=== PATIENT | female | born 1985 | race Caucasian/White ===

== ENCOUNTER 2016-11-02 22:52 | Emergency (ER) ==
[2016-11-02 22:59] VITALS: BP 114/74; TEMP 98.9; BMI 31.1
[2016-11-02 23:18] LABS: BILIRUBIN,URINE Negative (NEGATIVE); KETONES,URINE Trace (NEGATIVE); LEUKOCYTE ESTERASE ,URINE Negative (NEGATIVE); NITRITE,URINE Positive (NEGATIVE); PROTEIN,URINE 1+ (NEGATIVE); URINE, BLOOD 2+ (NEGATIVE)
[2016-11-02 23:21] LABS: ADD URINE MICROSCOPIC YES; BACTERIA,URINE 1+ (NOT PRESENT)
[2016-11-02] MEDS ORDERED: BACTRIM DS 800/160 MG PO STA (23:24)
--- NOTE | 2016-11-02 23:24 | ED.PDOC ---
General ED Provider: Dr. DELFINO MURRELL Chief Complaint: Urinary Problem Stated Complaint: Burning frequency of urination for couple days, taki Azo not getting better. Time Seen by Physician: 23:22 Mode of Arrival: Walk-In Information Source: Patient Nursing and Triage Documentation Reviewed and Agree: Yes Complaint Exam - UTI Female Complaint/Exam Patient Complains of: Reports: Painful urination Symptoms Are: Still present Timing: Constant Initial Severity: Moderate Current Severity: Moderate Location of Pain: Reports: Suprapubic Associated Signs and Symptoms: Denies: Fever, Chills, Flank pain, Dyspareunia, Vaginal discharge Patient Rh Status: Unknown : 1 Para: 1 Hx Total # of Abortions (Spontaneous & Elective): 0 Related Surgical History: Reports: None CVA Tenderness: No Suprapubic Tenderness: Yes Differential Diagnoses: Cystitis Review of Systems - Review Of Systems Constitutional: Reports: No symptoms Eyes: Reports: No symptoms Ears, Nose, Mouth, Throat: Reports: No symptoms Respiratory: Reports: No symptoms Cardiac: Reports: No symptoms GI: Reports: No symptoms : Reports: Burning, Dysuria, Frequency Musculoskeletal: Reports: No symptoms Skin: Reports: No symptoms Neurological: Reports: No symptoms Endocrine: Reports: No symptoms Hematologic/Lymphatic: Reports: No symptoms All Other Systems: Reviewed and Negative Past Medical History - Past Medical History Previously Healthy: Yes Endocrine: Reports: None Cardiovascular: Reports: None Respiratory: Reports: None Hematological: Reports: None Gastrointestinal: Reports: None Genitourinary: Reports: None Neuro/Psych: Reports: None Musculoskeletal: Reports: None Cancer: Reports: None Last Menstrual Period: GETS DEPO SHOT, VERY IRREGULAR - Surgical History General Surgical History: Reports: Tubal ligation, Cholecystectomy - Family History Family History: Reports: None - Social History Smoking Status: Current every day smoker, Heavy tobacco smoker Smoking Cessation Counseling Time: > 10 min Hx Substance Use: No Alcohol Screening: Occasionally - Immunizations Tetanus Shot up to Date: Yes Physical Exam - Physical Exam Appearance: Well-appearing, No pain distress, Well-nourished Eyes: NANI, EOMI, Conjunctiva clear ENT: Ears normal, Nose normal, Oropharynx normal Respiratory: Airway patent, Breath sounds clear, Breath sounds equal, Respirations nonlabored Cardiovascular: RRR, Pulses normal, No rub, No murmur GI/: Soft, Nontender, No masses, Bowel sounds normal, No Organomegaly Musculoskeletal: Normal strength, ROM intact, No edema, No calf tenderness Skin: Warm, Dry, Normal color Neurological: Sensation intact, Motor intact, Reflexes intact, Cranial nerves intact, Alert, Oriented Psychiatric: Affect appropriate, Mood appropriate Critical Care Note - Critical Care Note Total Time (mins): 0 Course - Course Orders, Labs, Meds: Lab Review 11/02/16 23:10 Urine Color [place] Urine Clarity Clear Urine pH 7.0 Ur Specific [place] 1.020 Urine Protein 1+ Urine Glucose (UA) Trace Urine Ketones Trace Urine Blood 2+ Urine Nitrite Positive Urine Bilirubin Negative Urine Urobilinogen 2.0 Ur Leukocyte Esterase Negative Urine Microscopic RBC 5-10 Urine Microscopic WBC 2-5 Ur Squamous Epith Cells 5-10 Urine Bacteria 1+ Orders Category Date Time Status UA [URINALYSIS C & S IF INDICATED] Stat LAB 11/02/16 23:10 Completed URINE CULTURE Stat LAB 11/02/16 23:21 Received Vital Signs: Temp Pulse Resp BP Pulse Ox 11/02/16 22:52 98.9 F 98 H 18 114/74 98 Departure - Departure Time of Disposition: 23:25 Disposition: HOME SELF-CARE Discharge Problem: UTI (urinary tract infection) Qualifiers: Urinary tract infection type: acute cystitis Hematuria presence: with hematuria Qualifier Code: (N30.01) Acute cystitis with hematuria Instructions: Urinary Tract Infection in Women (ED) Condition: Stable Pt referred to PMD for follow-up: Yes Additional Instructions: INCREASE HYDRATION CONTINUE AZO MEDICATION SIDE EFFECTS DISCUSSED Prescriptions: Sulfamethoxazole/Trimethoprim [Bactrim Ds 800/160 mg] 1 tab PO Q12HR #20 tablet Allergies/Adverse Reactions: Allergies No Known Allergies Allergy (Verified 11/02/16 22:59) Home Medications: Ambulatory Orders Medroxyprogesterone Acetate [Depo-Provera] 150 mg IM DIRECTED 09/24/16 Sulfamethoxazole/Trimethoprim [Bactrim Ds 800/160 mg] 1 tab PO Q12HR #20 tablet 11/02/16 Disposition Discussed With: Patient
== END 2016-11-02 23:40 | disposition home or self-care (01) ==
LOC: ED 22:52
DX: N30.01 Acute cystitis with hematuria (principal); F17.210 Nicotine dependence, cigarettes, uncomplicated
CPT/HCPCS: 81001; 87086; 99283

== ENCOUNTER 2017-05-13 23:36 | Emergency (ER) ==
[2017-05-13 23:43] VITALS: BP 111/71; TEMP 98.1; BMI 30.6
[2017-05-13] MEDS ORDERED: DECADRON 4 MG/ML SDV IM STA (23:51)
--- NOTE | 2017-05-13 23:53 | ED.PDOC ---
General ED Provider: Dr. DELFINO MURRELL Chief Complaint: Non-specific Complaint Stated Complaint: dizziness weakness, had some congestion and ears full. Time Seen by Physician: 23:51 Mode of Arrival: Walk-In Information Source: Patient Nursing and Triage Documentation Reviewed and Agree: Yes Neurological Complaint Exam - Weakness Complaint/Exam Onset: Gradual Symptoms Are: Still present Timing: Intermittent Episodes Lasting: Hours Initial Severity: Mild Current Severity: Mild Character: Reports: Lightheaded Aggravating: Reports: Position change Alleviating: Reports: None Associated Signs and Symptoms: Denies: Nausea, Vomiting, Diaphoresis, Tinnitus, Chest pain, Short of air, Palpitations, Unsteady gait, GI blood loss, Visual changes, Decreased oral intake, Change in medication, Change in diet, OTC meds, Loss of balance Cardiac Risk Factors: Reports: None CVA Risk Factors: Reports: None Related Surgical History: Reports: None JVD Present: No Carotid Bruit Present: No Rectal Heme Positive: No Nystagmus Present: No Gag Reflex Present: No Meningeal Signs Positive: No Focal Weakness: Present: None Focal Sensory Loss: Present: None Gait: Normal [id number]: Normal Findings Romberg Test Positive: No Babinski Sign: Negative Right, Negative Left Heel to Toe Normal: No Differential Diagnoses: Labyrinthitis, Meniere's, Metabolic abnormalities, Other (viral syndrome) Review of Systems - Review Of Systems Constitutional: Reports: Malaise, Weakness Eyes: Reports: No symptoms Ears, Nose, Mouth, Throat: Reports: No symptoms Respiratory: Reports: No symptoms Cardiac: Reports: No symptoms GI: Reports: No symptoms : Reports: No symptoms Musculoskeletal: Reports: No symptoms Skin: Reports: No symptoms Neurological: Reports: No symptoms Endocrine: Reports: No symptoms Hematologic/Lymphatic: Reports: No symptoms All Other Systems: Reviewed and Negative Past Medical History - Past Medical History Previously Healthy: Yes Endocrine: Reports: None Cardiovascular: Reports: None Respiratory: Reports: None Hematological: Reports: None Gastrointestinal: Reports: None Genitourinary: Reports: None Neuro/Psych: Reports: None Musculoskeletal: Reports: None Cancer: Reports: None Last Menstrual Period: YESTERDAY, IRREGULAR - Surgical History General Surgical History: Reports: Tubal ligation, Cholecystectomy - Family History Family History: Reports: None - Social History Smoking Status: Current every day smoker, Heavy tobacco smoker Hx Substance Use: No Alcohol Screening: Occasionally - Immunizations Tetanus Shot up to Date: Yes Physical Exam - Physical Exam Appearance: Well-appearing, No pain distress, Well-nourished Eyes: NANI, EOMI, Conjunctiva clear ENT: Ears normal, Nose normal, Oropharynx normal Respiratory: Airway patent, Breath sounds clear, Breath sounds equal, Respirations nonlabored Cardiovascular: RRR, Pulses normal, No rub, No murmur GI/: Soft, Nontender, No masses, Bowel sounds normal, No Organomegaly Musculoskeletal: Normal strength, ROM intact, No edema, No calf tenderness Skin: Warm, Dry, Normal color Neurological: Sensation intact, Motor intact, Reflexes intact, Cranial nerves intact, Alert, Oriented Psychiatric: Affect appropriate, Mood appropriate Critical Care Note - Critical Care Note Total Time (mins): 0 Course - Course Orders, Labs, Meds: Orders Category Date Time Status CBC W/ AUTO DIFF Stat LAB 05/13/17 23:50 Ordered COMPREHENSIVE METABOLIC PANEL Stat LAB 05/13/17 23:51 Ordered URINALYSIS C & S IF INDICATED Stat LAB 05/13/17 23:51 Uncollected URINE Stat LAB 05/13/17 23:51 Uncollected Dexamethasone 4 mg/ml Inj [Decadron 4 mg/ml Sdv] MEDS 05/13/17 23:51 Stat 4 mg IM ONCE STA Vital Signs: Temp Pulse Resp BP Pulse Ox 05/13/17 23:37 98.1 F 70 20 111/71 99 Departure - Departure Time of Disposition: 23:54 Disposition: HOME SELF-CARE Discharge Problem: General symptom Instructions: Viral Syndrome (ED) Condition: Good Pt referred to PMD for follow-up: No Additional Instructions: Increase hydration Tylenol prn Needs f/u with PMD if not better. Allergies/Adverse Reactions: Allergies No Known Allergies Allergy (Verified 05/13/17 23:43) Home Medications: Ambulatory Orders 1 [No Reported Medications] 05/13/17 Disposition Discussed With: Patient, Family
[2017-05-14 00:03] LABS: BASOPHILS % (AUTO) 0.4 % (0.0-3.0); EOSINOPHILS # (AUTO) 0.2 K/ul (0.0-0.7); EOSINOPHILS % (AUTO) 2.4 % (0.0-7.0); HEMATOCRIT 36.1 % (37.0-47.0); HEMOGLOBIN 11.9 g/dl (12.0-16.0); IMMATURE GRANULOCYTE % (AUTO) 0.2 % (0.0-5.0); LYMPHOCYTES % (AUTO) 32.4 (10.0-50.0); MEAN CORPUSCULAR HEMOGLOBIN 28.7 pg (27.0-31.0); MEAN CORPUSCULAR VOLUME 87.2 fl (81.0-99.0); MONOCYTES # (AUTO) 0.5 K/uL (0.4-2.0); MONOCYTES % (AUTO) 5.7 (0-10); NEUTROPHILS # (AUTO) 5.4 K/ul (2.0-6.9); NEUTROPHILS % (AUTO) 58.9; PLATELET COUNT 262 10^3/uL (140-440); RED BLOOD COUNT 4.14 10^6/ul (4.20-5.40); WHITE BLOOD COUNT 9.17 K/ul (4.6-10.2)
[2017-05-14 00:15] LABS: ADD URINE MICROSCOPIC YES; BILIRUBIN,URINE Negative (NEGATIVE); KETONES,URINE Negative (NEGATIVE); LEUKOCYTE ESTERASE ,URINE Negative (NEGATIVE); NITRITE,URINE Negative (NEGATIVE); PROTEIN,URINE Negative (NEGATIVE); URINE, BLOOD 2+ (NEGATIVE)
[2017-05-14 00:16] LABS: URINE PREGNANCY INTERNAL QC INTERNAL QC VALID
[2017-05-14 00:29] LABS: ALBUMIN 3.6 g/dL (3.4-5.0); ALBUMIN/GLOBULIN RATIO 1.09; ANION GAP 11.3; BILIRUBIN,TOTAL 0.37 mg/dL (0.00-1.20); BUN/CREATININE RATIO 18.82; CALCIUM 9.1 mg/dL (8.2-10.2); CREATININE 0.85 mg/dL (0.60-1.30); POTASSIUM 4.3 mmol/L (3.5-5.10); TOTAL PROTEIN 6.9 g/dL (6.4-8.2)
== END 2017-05-14 00:40 | disposition home or self-care (01) ==
LOC: ED 23:36
DX: R68.89 Other general symptoms and signs (principal); R42 Dizziness and giddiness; R53.1 Weakness; F17.210 Nicotine dependence, cigarettes, uncomplicated
CPT/HCPCS: 36415; 80053; 81001; 81025; 85025; 96372; 99283

== ENCOUNTER 2017-07-01 20:35 | Emergency (ER) ==
[2017-07-01 20:39] VITALS: TEMP 97.7; BMI 31.6
[2017-07-01] MEDS ORDERED: SODIUM CHLORIDE 1,000 ML IV STA ×2 (20:47→21:58)
[2017-07-01] MEDS ORDERED: ZOFRAN 4 MG/2 ML IVP STA (20:47)
[2017-07-01] MEDS ORDERED: PROTONIX IV IVP STA (20:47)
--- NOTE | 2017-07-01 21:05 | ED.PDOC ---
General ED Provider: Dr. JEREMI ELIZABETH Chief Complaint: Nausea/Vomiting Stated Complaint: Patient is a 31 year old female who comes to the ER with complans of 2 days of nausea, vomting, diarrhea and dysurea. Time Seen by Physician: 21:02 Mode of Arrival: Walk-In Information Source: Patient Exam Limitations: No limitations Primary [facility] Provider[facility] Nursing and Triage Documentation Reviewed and Agree: Yes GI Complaint Exam - Vomiting/Diarrhea Complaint/Exam Onset/Duration: 2 days Symptoms Are: Still present Episodes of Vomiting over last 24 Hours: 5 Episodes of Diarrhea Over Last 24 Hours: 7 Initial Severity: Moderate Current Severity: Severe Character of Vomiting: Reports: Non-bilious Character of Diarrhea: Reports: Watery Aggravating: Reports: Liquids Alleviating: Reports: None Associated Signs and Symptoms: Reports: Abdominal pain, Cramping. Denies: Dizziness, Light-headedness, Melena, Hematemesis, Fever Recent Positive Test: No Use of Oral Contraceptives: No Use of Depoprovera: No Compliant With Contraceptive Use: No Non-GI Risk Factors: Reports: None Surgical Obstruction Risk Factors: Reports: None Related Surgical History: Reports: Cholecystectomy Abdominal Findings: Present: None Kussmaul Respirations Present: No Review of Systems - Review Of Systems Constitutional: Reports: No symptoms Eyes: Reports: No symptoms Ears, Nose, Mouth, Throat: Reports: No symptoms Respiratory: Reports: No symptoms Cardiac: Reports: No symptoms GI: Reports: Abdominal pain, Diarrhea, Nausea, Vomiting : Reports: No symptoms Musculoskeletal: Reports: No symptoms Skin: Reports: No symptoms Neurological: Reports: No symptoms Endocrine: Reports: No symptoms Hematologic/Lymphatic: Reports: No symptoms All Other Systems: Reviewed and Negative Past Medical History - Past Medical History Previously Healthy: Yes Endocrine: Reports: None Cardiovascular: Reports: None Respiratory: Reports: None Hematological: Reports: None Gastrointestinal: Reports: None Genitourinary: Reports: None Neuro/Psych: Reports: None Musculoskeletal: Reports: None Cancer: Reports: None Last Menstrual Period: current - Surgical History General Surgical History: Reports: Tubal ligation, Cholecystectomy - Family History Family History: Reports: None - Social History Smoking Status: Current every day smoker, Heavy tobacco smoker Hx Substance Use: No Alcohol Screening: None - Immunizations Tetanus Shot up to Date: Yes Physical Exam - Physical Exam Appearance: Ill-appearing, Well-nourished Ill-appearing: Moderate Pain Distress: Moderate Eyes: NANI, EOMI, Conjunctiva clear Neck: Supple Respiratory: Airway patent, Breath sounds clear, Breath sounds equal, Respirations nonlabored Cardiovascular: RRR, Pulses normal, No rub, No murmur GI/: Soft, No masses, Bowel sounds normal, No Organomegaly, Tender Musculoskeletal: Normal strength, ROM intact, No edema, No calf tenderness Skin: Warm, Dry, Normal color Neurological: Sensation intact, Motor intact, Alert, Oriented Psychiatric: Anxious Interpretation - Radiology Interpretation Radiology Interpretation By: Radiologist Radiology Results: Negative Exam Interpreted: CT Scan Critical Care Note - Critical Care Note Total Time (mins): 0 Course - Course Hematology/Chemistry: 07/01/17 20:57 07/01/17 20:57 Orders, Labs, Meds: Lab Review 07/01/17 07/01/17 07/01/17 20:53 20:57 20:57 WBC 11.32 H RBC 4.62 Hgb 12.6 Hct 38.9 MCV 84.2 MCH 27.3 MCHC 32.4 RDW Coeff of Mariam 13.1 Plt Count 238 Immature Gran % (Auto) 0.6 Neut % (Auto) 72.6 Lymph % (Auto) 18.4 [place] % (Auto) 6.8 Eos % (Auto) 1.3 Baso % (Auto) 0.3 Immature Gran # (Auto) 0.1 Neut # 8.2 H Lymph # 2.1 [place] # 0.8 Eos # 0.2 Baso # 0.0 Sodium 143 Potassium 3.6 Chloride 110 H Carbon Dioxide 23 Anion Gap 13.6 BUN 8 Creatinine 0.72 Estimated GFR (MDRD) 95.00 BUN/Creatinine Ratio 11.11 Glucose 89 Calcium 9.0 Total Bilirubin 0.63 AST 29 ALT 39 Alkaline Phosphatase 170 H Total Protein 6.9 Albumin 3.6 Globulin 3.3 Albumin/Globulin Ratio 1.09 Amylase 46 Lipase 11 Serum , Qual Urine Color Yellow Urine Clarity Clear Urine pH 5.5 Ur Specific [place] >=1.030 Urine Protein Trace Urine Glucose (UA) Negative Urine Ketones Trace Urine Blood 2+ Urine Nitrite Negative Urine Bilirubin 1+ Urine Urobilinogen 0.2 Ur Leukocyte Esterase Negative Urine Microscopic RBC 10-20 Urine Microscopic WBC 0-2 Ur Squamous Epith Cells 10-20 07/01/17 20:57 WBC RBC Hgb Hct MCV MCH MCHC RDW Coeff of Mari[place] Plt Count Immature Gran % (Auto) Neut % (Auto) Lymph % (Auto) [place] % (Auto) Eos % (Auto) Baso % (Auto) Immature Gran # (Auto) Neut # Lymph # [place] # Eos # Baso # Sodium Potassium Chloride Carbon Dioxide Anion Gap BUN Creatinine Estimated GFR (MDRD) BUN/Creatinine Ratio Glucose Calcium Total Bilirubin AST ALT Alkaline Phosphatase Total Protein Albumin Globulin Albumin/Globulin Ratio Amylase Lipase Serum , Qual Negative Urine Color Urine Clarity Urine pH Ur Specific [place] Urine Protein Urine Glucose (UA) Urine Ketones Urine Blood Urine Nitrite Urine Bilirubin Urine Urobilinogen Ur Leukocyte Esterase Urine Microscopic RBC Urine Microscopic WBC Ur Squamous Epith Cells Orders Category Date Time Status ED IV/MEDIPORT/POWERPORT .ONCE EMERGENCY 07/01/17 20:47 Active AMYLASE Stat LAB 07/01/17 20:57 Completed CBC W/ AUTO DIFF Stat LAB 07/01/17 20:57 Completed COMPREHENSIVE METABOLIC PANEL Stat LAB 07/01/17 20:57 Completed HCG QUALITATIVE [SERUM ] Stat LAB 07/01/17 20:57 Completed LIPASE Stat LAB 07/01/17 20:57 Completed URINALYSIS C & S IF INDICATED Stat LAB 07/01/17 20:53 Completed 0.9 % Sodium Chloride [Saline Flush] MEDS 07/01/17 20:47 Discontinued 1 syr IVF PRN PRN Metoclopramide HCl [Reglan] MEDS 07/01/17 21:58 Discontinued 10 mg IVP ONCE STA Ondansetron HCl/Pf [Zofran 4 mg/2 ml] MEDS 07/01/17 20:47 Discontinued 4 mg IVP ONCE STA Pantoprazole Sodium [Protonix IV] MEDS 07/01/17 20:47 Discontinued 40 mg IVP ONCE STA Sodium Chloride 0.9% [Sodium Chloride] 1,000 ml MEDS 07/01/17 20:47 Discontinued IV BOLUS Sodium Chloride 0.9% [Sodium Chloride] 1,000 ml MEDS 07/01/17 21:[address] ABD/PEL WO RENAL STONE PROT Stat RADS 07/01/17 20:47 Completed Medications Discontinued Medications Generic Name Dose Route Start Last Admin Trade Name Freq PRN Reason Stop Dose Admin Sodium Chloride 1,000 mls @ 1,000 mls/hr 07/01/17 20:47 07/01/17 21:15 Sodium Chloride IV 07/01/17 21:46 1,000 mls/hr BOLUS STA Administration Sodium Chloride 1,000 mls @ 1,000 mls/hr 07/01/17 21:58 07/01/17 22:06 Sodium Chloride IV 07/01/17 22:57 1,000 mls/hr BOLUS STA Administration Metoclopramide HCl 10 mg 07/01/17 21:58 07/01/17 22:06 Reglan IVP 07/01/17 21:59 10 mg ONCE STA Administration Ondansetron HCl 4 mg 07/01/17 20:47 07/01/17 21:15 Zofran 4 Mg/2 Ml IVP 07/01/17 20:48 4 mg ONCE STA Administration Pantoprazole Sodium 40 mg 07/01/17 20:47 07/01/17 21:16 Protonix Iv IVP 07/01/17 20:48 40 mg ONCE STA Administration Sodium Chloride 1 syr 07/01/17 20:47 07/01/17 21:16 Saline Flush IVF 1 syr PRN PRN Administration To flush IV Vital Signs: Temp Pulse Resp BP Pulse Ox 07/01/17 23:11 60 18 104/60 98 07/01/17 20:36 97.7 F 82 18 133/75 98 Departure - Departure Time of Disposition: 23:40 Disposition: HOME SELF-CARE Discharge Problem: Gastroenteritis Instructions: Gastroenteritis (ED) Condition: Fair Pt referred to PMD for follow-up: Yes Additional Instructions: Push fluids Follow up with PCP in 3 days Prescriptions: Dicyclomine HCl [Bentyl] 10 mg PO TID PRN #14 capsule PRN Reason: Abdominal Pain Diphenoxylate HCl/Atropine [Lomotil 2.5-0.025 mg Tablet] 1 each PO TID PRN #15 tablet PRN Reason: Diarrhea Ondansetron HCl [Zofran Tab] 4 mg PO Q8H PRN #14 tablet PRN Reason: Nausea / Vomiting Phenazopyridine HCl [Pyridium] 100 mg PO TID PRN #10 tablet PRN Reason: Urinary Burning. Allergies/Adverse Reactions: Allergies No Known Allergies Allergy (Verified 07/01/17 20:39) Home Medications: Ambulatory Orders Dicyclomine HCl [Bentyl] 10 mg PO TID PRN #14 capsule 07/01/17 Diphenoxylate HCl/Atropine [Lomotil 2.5-0.025 mg Tablet] 1 each PO TID PRN #15 tablet 07/01/17 Ondansetron HCl [Zofran Tab] 4 mg PO Q8H PRN #14 tablet 07/01/17 Phenazopyridine HCl [Pyridium] 100 mg PO TID PRN #10 tablet 07/01/17 Disposition Discussed With: Patient, Family
[2017-07-01 21:06] LABS: BASOPHILS % (AUTO) 0.3 % (0.0-3.0); EOSINOPHILS # (AUTO) 0.2 K/ul (0.0-0.7); EOSINOPHILS % (AUTO) 1.3 % (0.0-7.0); HEMATOCRIT 38.9 % (37.0-47.0); HEMOGLOBIN 12.6 g/dl (12.0-16.0); IMMATURE GRANULOCYTE % (AUTO) 0.6 % (0.0-5.0); LYMPHOCYTES # (AUTO) 2.1 K/uL (0.60-3.4); LYMPHOCYTES % (AUTO) 18.4 (10.0-50.0); MEAN CORPUSCULAR HEMOGLOBIN 27.3 pg (27.0-31.0); MEAN CORPUSCULAR HGB CONC 32.4 (31.8-35.4); MEAN CORPUSCULAR VOLUME 84.2 fl (81.0-99.0); MONOCYTES # (AUTO) 0.8 K/uL (0.4-2.0); MONOCYTES % (AUTO) 6.8 (0-10); NEUTROPHILS # (AUTO) 8.2 K/ul (2.0-6.9); NEUTROPHILS % (AUTO) 72.6; PLATELET COUNT 238 10^3/uL (140-440); RED BLOOD COUNT 4.62 10^6/ul (4.20-5.40); WHITE BLOOD COUNT 11.32 K/ul (4.6-10.2)
[2017-07-01 21:11] LABS: BILIRUBIN,URINE 1+ (NEGATIVE); KETONES,URINE Trace (NEGATIVE); LEUKOCYTE ESTERASE ,URINE Negative (NEGATIVE); NITRITE,URINE Negative (NEGATIVE); PH,URINE 5.5 (5-9); PROTEIN,URINE Trace (NEGATIVE); URINE, BLOOD 2+ (NEGATIVE)
[2017-07-01 21:15] LABS: ADD URINE MICROSCOPIC YES
[2017-07-01 21:21] LABS: SERUM PREGNANCY INTERNAL QC INTERNAL QC VALID
[2017-07-01 21:26] LABS: ALBUMIN 3.6 g/dL (3.4-5.0); ALBUMIN/GLOBULIN RATIO 1.09; ANION GAP 13.6; BILIRUBIN,TOTAL 0.63 mg/dL (0.00-1.20); BUN/CREATININE RATIO 11.11; CREATININE 0.72 mg/dL (0.60-1.30); POTASSIUM 3.6 mmol/L (3.5-5.10); TOTAL PROTEIN 6.9 g/dL (6.4-8.2)
--- NOTE | 2017-07-01 21:55 | CT ---
Exam: CT of the abdomen and pelvis without contrast History: Abdominal pain with nausea vomiting Technique: [address] of the abdomen and pelvis without intravascular contrast FINDINGS: The lung bases are clear. No significant liver abnormality. The adrenals, pancreas and spl een are unremarkable. The stomach and hiatus are unremarkable.Prior cholecystectomy. Kidneys and prox imal collecting system are unremarkable. The appendix is normal. Bowel loops demonstrate normal calib er. No inflamatory change seen in the mesentery or retroperitoneum. Vascular structures appear normal by noncontrast CT. Central mesenteric lymph nodes are abundant but not enlarged. Essure occlusive devices in place. Tampon in the vagina. Pelvic genitourinary structures appear norm al. Pelvic bowel loops are unremarkable. No inflammatory change in the pelvic fat. No acute abnormali ty of the abdominal or pelvic skeleton. Impression: 1. No inflammatory process, bowel or urinary obstruction is seen. 2. Nonspecific central mesenteric lymph node abundance without pathologic enlargement.
[2017-07-01] MEDS ORDERED: REGLAN IVP STA (21:58)
[2017-07-01 23:13] VITALS: BP 104/60
== END 2017-07-01 23:30 | disposition home or self-care (01) ==
LOC: ED 20:35
DX: K52.9 Noninfective gastroenteritis and colitis, unspecified (principal); F17.210 Nicotine dependence, cigarettes, uncomplicated
CPT/HCPCS: 36415; 74176; 80053; 81001; 82150; 83690; 84703; 85025; 96361; 96374; 96375; 99283

== ENCOUNTER 2018-01-02 15:24 | Emergency (ER) ==
[2018-01-02 15:35] VITALS: BP 120/79; TEMP 98.8; BMI 29.3
--- NOTE | 2018-01-02 15:49 | ED.PDOC ---
General ED Provider: Dr. EDD ATKINS-ER Chief Complaint: Urinary Problem Stated Complaint: it hurts to pee Time Seen by Physician: 15:30 Mode of Arrival: Walk-In Information Source: Patient Exam Limitations: No limitations Primary Care Provider: DELFIN[facility] Nursing and Triage Documentation Reviewed and Agree: Yes Reviewed sepsis parameters & appropriate labs ordered?: Yes System Inflammatory Response Syndrome: Not Applicable Sepsis Protocol: For patient's 13 years and over: Temp is 96.8 and below OR 101 and greater Pulse >90 BPM Resp >20/minute Acutely Altered Mental Status Are patient's symptoms suggestive of a new infection, such as: -Pneumonia -Skin, Soft Tissue -Endocarditis -UTI -Bone, Joint Infection -Implantable Device -Acute Abdominal Infection -Wound Infection -Meningitis -Blood Stream Catheter Infection -Unknown Complaint Exam - UTI Female Complaint/Exam Patient Complains of: Reports: Painful urination Onset/Duration: 2 days Symptoms Are: Still present Initial Severity: Mild Current Severity: Mild Location of Pain: Reports: Suprapubic Associated Signs and Symptoms: Denies: Fever, Chills, Flank pain, Dyspareunia, Vaginal discharge Patient Rh Status: Unknown CVA Tenderness: No Suprapubic Tenderness: No Differential Diagnoses: Cystitis Review of Systems - Review Of Systems Constitutional: Reports: No symptoms Eyes: Reports: No symptoms Ears, Nose, Mouth, Throat: Reports: No symptoms Respiratory: Reports: No symptoms Cardiac: Reports: No symptoms GI: Reports: No symptoms : Reports: Dysuria, Frequency, Pain, Urgency Musculoskeletal: Reports: No symptoms Skin: Reports: No symptoms Neurological: Reports: No symptoms Endocrine: Reports: No symptoms Hematologic/Lymphatic: Reports: No symptoms All Other Systems: Reviewed and Negative Past Medical History - Past Medical History Previously Healthy: Yes Endocrine: Reports: None Cardiovascular: Reports: None Respiratory: Reports: None Hematological: Reports: None Gastrointestinal: Reports: None Genitourinary: Reports: None Neuro/Psych: Reports: None Musculoskeletal: Reports: None Cancer: Reports: None Last Menstrual Period: 1 month ago - irregular - Surgical History General Surgical History: Reports: Tubal ligation, Cholecystectomy - Family History Family History: Reports: None - Social History Smoking Status: Current every day smoker, Heavy tobacco smoker Hx Substance Use: No Alcohol Screening: None Lives: With family - Immunizations Tetanus Shot up to Date: Yes Physical Exam - Physical Exam Appearance: Well-appearing, No pain distress, Well-nourished Eyes: NANI, EOMI, Conjunctiva clear ENT: Ears normal, Nose normal, Oropharynx normal Neck: Supple Respiratory: Airway patent, Breath sounds clear, Breath sounds equal, Respirations nonlabored Cardiovascular: RRR, Pulses normal, No rub, No murmur GI/: Soft, Nontender, No masses, Bowel sounds normal, No Organomegaly Musculoskeletal: Normal strength, ROM intact, No edema, No calf tenderness Skin: Warm, Dry, Normal color Neurological: Sensation intact, Motor intact, Reflexes intact, Cranial nerves intact, Alert, Oriented Psychiatric: Affect appropriate, Mood appropriate Critical Care Note - Critical Care Note Total Time (mins): 0 Course - Course Orders, Labs, Meds: Orders Category Date Time Status URINALYSIS C & S IF INDICATED Stat LAB 01/02/18 03:40 Received Vital Signs: Temp Pulse Resp BP Pulse Ox 01/02/18 15:25 98.8 F 88 20 120/79 98 Departure - Departure Time of Disposition: 15:48 Disposition: HOME SELF-CARE Discharge Problem: Cystitis Instructions: Urinary Tract Infection in Women (ED) Condition: Good Pt referred to PMD for follow-up: Yes IPMP verified?: No Additional Instructions: cipro 500mg bid x 7days--pyridium 200mg tid with food #6--push fluids--recheck ua and culture with pcp Allergies/Adverse Reactions: Allergies No Known Allergies Allergy (Verified 01/02/18 15:35) Home Medications: Ambulatory Orders 1 [No Reported Medications] 01/02/18 Disposition Discussed With: Patient
== END 2018-01-02 15:57 | disposition home or self-care (01) ==
LOC: ED 15:24
DX: N30.90 Cystitis, unspecified without hematuria (principal); F17.210 Nicotine dependence, cigarettes, uncomplicated
CPT/HCPCS: 81001; 87086; 99283

== ENCOUNTER 2018-10-22 18:38 | Emergency (ER) ==
[2018-10-22 18:47] VITALS: BP 128/85; TEMP 98.5; BMI 26.9
[2018-10-22] MEDS ORDERED: SODIUM CHLORIDE 1,000 ML IV STA (19:28)
[2018-10-22] MEDS ORDERED: TORADOL IVP STA (19:28)
--- NOTE | 2018-10-22 19:29 | ED.PDOC ---
General ED Provider: Dr. JEREMI ELIZABETH Chief Complaint: Urinary Problem Stated Complaint: Patient complains of right lower back pain with dysurea. Took azo for 2-3 day but not better. Time Seen by Physician: 19:28 Mode of Arrival: Walk-In Information Source: Patient Exam Limitations: No limitations Primary Care Provider: CARLIN WATSON Nursing and Triage Documentation Reviewed and Agree: Yes Does patient meet sepsis criteria?: No System Inflammatory Response Syndrome: Not Applicable Sepsis Protocol: For patient's 13 years and over: Temp is 96.8 and below OR 101 and greater Pulse >90 BPM Resp >20/minute Acutely Altered Mental Status Are patient's symptoms suggestive of a new infection, such as: -Pneumonia -Skin, Soft Tissue -Endocarditis -UTI -Bone, Joint Infection -Implantable Device -Acute Abdominal Infection -Wound Infection -Meningitis -Blood Stream Catheter Infection -Unknown Review of Systems - Review Of Systems Constitutional: Reports: No symptoms Eyes: Reports: No symptoms Ears, Nose, Mouth, Throat: Reports: No symptoms Respiratory: Reports: No symptoms Cardiac: Reports: No symptoms GI: Reports: No symptoms : Reports: Burning, Dysuria, Flank pain Musculoskeletal: Reports: Back pain Skin: Reports: No symptoms Neurological: Reports: Anxiety Endocrine: Reports: No symptoms Hematologic/Lymphatic: Reports: No symptoms All Other Systems: Reviewed and Negative Past Medical History - Past Medical History Previously Healthy: Yes Endocrine: Reports: None Cardiovascular: Reports: None Respiratory: Reports: None Hematological: Reports: Anemia Gastrointestinal: Reports: Gallstones Genitourinary: Reports: None Neuro/Psych: Reports: Migraine Musculoskeletal: Reports: None Cancer: Reports: None Last Menstrual Period: PRESENTLY - Surgical History General Surgical History: Reports: Tubal ligation, Cholecystectomy - Family History Family History: Reports: None - Social History Smoking Status: Current every day smoker, Heavy tobacco smoker Hx Substance Use: No Alcohol Screening: None - Immunizations Tetanus Shot up to Date: Yes Physical Exam - Physical Exam Appearance: Ill-appearing Ill-appearing: Mild Pain Distress: Severe Eyes: NANI, EOMI, Conjunctiva clear ENT: Ears normal, Nose normal, Oropharynx normal Neck: Supple Respiratory: Airway patent, Breath sounds clear, Breath sounds equal, Respirations nonlabored Cardiovascular: RRR, Pulses normal, No rub, No murmur GI/: Soft, Nontender, No masses, Bowel sounds normal, No Organomegaly Musculoskeletal: Normal strength, ROM intact, No edema, No calf tenderness Skin: Warm, Dry, Normal color Neurological: Sensation intact, Motor intact, Cranial nerves intact, Alert, Oriented Psychiatric: Affect appropriate, Mood appropriate Critical Care Note - Critical Care Note Total Time (mins): 0 Course - Course Hematology/Chemistry: 10/22/18 19:35 10/22/18 19:35 Orders, Labs, Meds: Lab Review 10/22/18 10/22/18 10/22/18 18:55 19:35 19:35 WBC 12.14 H RBC 4.88 Hgb 13.7 Hct 42.8 MCV 87.7 MCH 28.1 MCHC 32.0 RDW Coeff of Mariam 14.0 Plt Count 264 Immature Gran % (Auto) 0.3 Neut % (Auto) 65.5 Lymph % (Auto) 26.0 [place] % (Auto) 6.5 Eos % (Auto) 1.4 Baso % (Auto) 0.3 Immature Gran # (Auto) 0.0 Neut # (Auto) 7.9 H Lymph # (Auto) 3.2 [place] # (Auto) 0.8 Eos # (Auto) 0.2 Baso # (Auto) 0.0 Sodium 137.8 Potassium 4.01 Chloride 103.7 Carbon Dioxide 27.6 Anion Gap 10.51 BUN 12.8 Creatinine 0.69 Estimated GFR (MDRD) 99.00 BUN/Creatinine Ratio 18.55 Glucose 89.2 Calcium 9.00 Total Bilirubin 0.87 AST 23.0 ALT 33.3 Alkaline Phosphatase 145.1 H Total Protein 7.69 Albumin 4.31 Globulin 3.38 Albumin/Globulin Ratio 1.27 Amylase 84.5 Lipase 91.3 Urine Color Yellow Urine Clarity Slightly Urine pH 7.5 Ur Specific [place] 1.015 Urine Protein Negative Urine Glucose (UA) Negative Urine Ketones Negative Urine Blood 2+ Urine Nitrite Negative Urine Bilirubin Negative Urine Urobilinogen 1.0 Ur Leukocyte Esterase Trace Urine Microscopic RBC 2-5 Urine Microscopic WBC 5-10 Ur Squamous Epith Cells 0-2 Urine Bacteria Trace Orders Category Date Time Status ED IV/MEDIPORT/POWERPORT .ONCE EMERGENCY 10/22/18 19:28 Active AMYLASE Stat LAB 10/22/18 19:35 Completed CBC W/ AUTO DIFF Stat LAB 10/22/18 19:35 Completed COMPREHENSIVE METABOLIC PANEL Stat LAB 10/22/18 19:35 Completed LIPASE Stat LAB 10/22/18 19:35 Completed URINALYSIS C & S IF INDICATED Stat LAB 10/22/18 18:55 Completed URINE CULTURE Stat LAB 10/22/18 19:49 Received 0.9 % Sodium Chloride [Saline Flush] MEDS 10/22/18 19:28 Discontinued 1 syr IVF PRN PRN Ketorolac Tromethamine [Toradol] MEDS 10/22/18 19:28 Discontinued 30 mg IVP ONCE STA Nitrofurantoin Monohyd/M-Cryst [Macrobid] MEDS 10/22/18 20:52 Discontinued 100 mg PO ONCE STA Phenazopyridine HCl [Pyridium] MEDS 10/22/18 20:52 Discontinued 100 mg PO ONCE STA Sodium Chloride 0.9% [Sodium Chloride] 1,000 ml MEDS 10/22/18 19:[address] ABD/PEL WO RENAL STONE PROT Stat RADS 10/22/18 19:59 Completed Medications Discontinued Medications Generic Name Dose Route Start Last Admin Trade Name Freq PRN Reason Stop Dose Admin Sodium Chloride 1,000 mls @ 1,000 mls/hr 10/22/18 19:28 10/22/18 20:01 Sodium Chloride IV 10/22/18 20:27 1,000 mls/hr BOLUS STA Administration Ketorolac Tromethamine 30 mg 10/22/18 19:28 10/22/18 20:02 Toradol IVP 10/22/18 19:29 30 mg ONCE STA Administration Nitrofurantoin Macrocrystals 100 mg 10/22/18 20:52 10/22/18 20:57 Macrobid PO 10/22/18 20:53 100 mg ONCE STA Administration Phenazopyridine HCl 100 mg 10/22/18 20:52 10/22/18 20:57 Pyridium PO 10/22/18 20:53 100 mg ONCE STA Administration Sodium Chloride 1 syr 10/22/18 19:28 10/22/18 19:58 Saline Flush IVF 1 syr PRN PRN Administration To flush IV Vital Signs: Temp Pulse Resp BP Pulse Ox 10/22/18 18:38 98.5 F 83 20 128/85 97 Departure - Departure Time of Disposition: 20:50 Disposition: HOME SELF-CARE Discharge Problem: Urinary tract infectious disease Instructions: Urinary Tract Infection in Women (ED) Condition: Good Pt referred to PMD for follow-up: Yes IPMP verified?: No Additional Instructions: take Medications as prescribed Follow up with PCP in 3 days Prescriptions: Nitrofurantoin Monohyd/M-Cryst [Macrobid] 100 mg PO BID #14 capsule Phenazopyridine HCl [Pyridium] 100 mg PO TID PRN #10 tablet PRN Reason: Urinary Burning. Tramadol HCl [Ultram] 50 mg PO Q6H PRN #14 tablet PRN Reason: Severe Pain Allergies/Adverse Reactions: Allergies No Known Allergies Allergy (Verified 10/22/18 18:45) Home Medications: Ambulatory Orders Nitrofurantoin Monohyd/M-Cryst [Macrobid] 100 mg PO BID #14 capsule 10/22/18 Phenazopyridine HCl [Pyridium] 100 mg PO TID PRN #10 tablet 10/22/18 Tramadol HCl [Ultram] 50 mg PO Q6H PRN #14 tablet 10/22/18 Disposition Discussed With: Patient
--- NOTE | 2018-10-22 20:34 | CT ---
EXAM: Noncontrast CT of the abdomen and pelvis HISTORY: Right flank pain COMPARISON: 07/01/2017 TECHNIQUE: Axial noncontrast CT of the abdomen and pelvis with sagittal and coronal reformats. FINDINGS: There is minimal fullness of the right renal collecting system. No right renal calculi are identifie d. Some portions of the right ureter are obscured. No calcifications are identified along the expec ana course of the right ureter to suggest ureteral calculi. No left renal calculi are seen. No calc ifications are seen along the expected course of the left ureter. Noncontrast technique limits evaluation of abdominal viscera. The unenhanced liver, spleen, adrenals , left kidney and pancreas appear unremarkable. Ingested material is seen in the stomach. No abnormal small bowel dilation is seen. The colon appea rs within normal limits. Moderate ascending colonic stool is seen. There are is mild colonic stool more distally. The appendix is not abnormally enlarged. A tampon is noted. Bilateral tubal closure devices are also seen. There is trace free pelvic fluid. No free air is seen. IMPRESSION: No renal calculi. Minimal fullness of the right renal collecting system without tomás hydronephrosis . Obscuration of some portions of both ureters without identification of calcifications along their expected course to suggest ureteral calculi. Trace free pelvic fluid. Appendix within normal limits. Moderate colonic stool burden.
[2018-10-22] MEDS ORDERED: MACROBID PO STA (20:52)
[2018-10-22] MEDS ORDERED: PYRIDIUM PO STA (20:52)
== END 2018-10-22 21:10 | disposition home or self-care (01) ==
LOC: ED 18:38
DX: N39.0 Urinary tract infection, site not specified (principal); F17.210 Nicotine dependence, cigarettes, uncomplicated
CPT/HCPCS: 36415; 74176; 80053; 81001; 82150; 83690; 85025; 87086; 87186; 96361; 96374; 99283

== ENCOUNTER 2018-11-21 10:37 | Emergency (ER) ==
[2018-11-21 10:42] VITALS: BP 143/79; TEMP 98; BMI 28.0
[2018-11-21 11:02] LABS: URINE PREGNANCY TEST NEGATIVE (NEGATIVE)
--- NOTE | 2018-11-21 11:23 | ED.PDOC ---
General ED Provider: Dr. ELVIN GARCIA Chief Complaint: Urinary Problem Stated Complaint: dysuria Time Seen by Physician: 10:40 (rn present at all times ) Mode of Arrival: Walk-In Information Source: Patient Exam Limitations: No limitations Primary Care Provider: CARLIN WATSON Nursing and Triage Documentation Reviewed and Agree: Yes Does patient meet sepsis criteria?: Yes If yes, has appropriate treatment been initiated?: No System Inflammatory Response Syndrome: Not Applicable Sepsis Protocol: For patient's 13 years and over: Temp is 96.8 and below OR 101 and greater Pulse >90 BPM Resp >20/minute Acutely Altered Mental Status Are patient's symptoms suggestive of a new infection, such as: -Pneumonia -Skin, Soft Tissue -Endocarditis -UTI -Bone, Joint Infection -Implantable Device -Acute Abdominal Infection -Wound Infection -Meningitis -Blood Stream Catheter Infection -Unknown Complaint Exam - Complaint/Exam Patient Complains of: Reports: Dysuria Onset/Duration: 4 days Symptoms Are: Still present Timing: Intermittent Initial Severity: Moderate Current Severity: Mild Location of Pain: Reports: Suprapubic Character: Reports: Burning Aggravating: Reports: Urination Alleviating: Reports: None Associated Signs and Symptoms: Reports: Dysuria. Denies: Diaphoresis, Back pain , Fever, Hematuria, Constipation, Blood in stool, Rectal pain, Appetite change, Nausea, Vomiting, Decreased urine output, Increased urine frequency, Increased thirst, Decreased activity, Lethargy, Abdominal Pain, Bubble bath use, Vaginal bleeding, Vaginal discharge, Genital swelling, Genital blisters, Retained foreign body Ectopic Risk Factors: Reports: None Ovarian Torsion Risk Factors: Reports: None Surgical Obstruction Risk Factors: Reports: None RH Status: Unknown Related Surgical History: Reports: None Abdominal Findings: Present: None Differential Diagnoses: UTI Review of Systems - Review Of Systems Constitutional: Reports: No symptoms Eyes: Reports: No symptoms Ears, Nose, Mouth, Throat: Reports: No symptoms Respiratory: Reports: No symptoms Cardiac: Reports: No symptoms GI: Reports: No symptoms : Reports: Dysuria Musculoskeletal: Reports: No symptoms Skin: Reports: No symptoms Neurological: Reports: No symptoms Endocrine: Reports: No symptoms Hematologic/Lymphatic: Reports: No symptoms All Other Systems: Reviewed and Negative Past Medical History - Past Medical History Previously Healthy: Yes Endocrine: Reports: None Cardiovascular: Reports: None Respiratory: Reports: None Hematological: Reports: Anemia Gastrointestinal: Reports: Gallstones Genitourinary: Reports: None Neuro/Psych: Reports: Migraine Musculoskeletal: Reports: None Cancer: Reports: None Last Menstrual Period: last week - Surgical History General Surgical History: Reports: Tubal ligation, Cholecystectomy - Family History Family History: Reports: None - Social History Smoking Status: Vaping Hx Substance Use: No Alcohol Screening: Occasionally Physical Exam - Physical Exam Appearance: Well-appearing, No pain distress, Well-nourished Eyes: NANI, EOMI, Conjunctiva clear ENT: Ears normal, Nose normal, Oropharynx normal Respiratory: Airway patent, Breath sounds clear, Breath sounds equal, Respirations nonlabored Cardiovascular: RRR, Pulses normal, No rub, No murmur GI/: Soft, Nontender, No masses, Bowel sounds normal, No Organomegaly Musculoskeletal: Normal strength, ROM intact, No edema, No calf tenderness Skin: Warm, Dry, Normal color Neurological: Sensation intact, Motor intact, Reflexes intact, Cranial nerves intact, Alert, Oriented Psychiatric: Affect appropriate, Mood appropriate Critical Care Note - Critical Care Note Total Time (mins): 0 Course - Course Orders, Labs, Meds: Lab Review 11/21/18 11/21/18 10:55 10:55 Urine Color Yellow Urine Clarity Slightly Urine pH 6.0 Ur Specific [place] 1.010 Urine Protein 1+ Urine Glucose (UA) Negative Urine Ketones Negative Urine Blood 3+ Urine Nitrite Negative Urine Bilirubin Negative Urine Urobilinogen 0.2 Ur Leukocyte Esterase 3+ Urine Microscopic RBC 10-20 Urine Microscopic WBC 10-20 Ur Squamous Epith Cells 2-5 Urine Bacteria 1+ Urine Test Negative Orders Category Date Time Status URINALYSIS C & S IF INDICATED Stat LAB 11/21/18 10:55 Completed URINE CULTURE Stat LAB 11/21/18 10:55 Received URINE Stat LAB 11/21/18 10:55 Completed Vital Signs: Temp Pulse Resp BP Pulse Ox 11/21/18 10:37 98 F 106 H 20 143/79 H 98 Departure - Departure Time of Disposition: 11:22 Disposition: HOME SELF-CARE Discharge Problem: Urinary symptoms, Urinary tract infectious disease Instructions: Urinary Tract Infection in Women (DC) Condition: Good Pt referred to PMD for follow-up: Yes IPMP verified?: No Additional Instructions: Please call your Family Physician as soon as possible to schedule a follow-up appointment. Prescriptions: Ciprofloxacin HCl [Cipro] 500 mg PO Q12HR #10 tablet Allergies/Adverse Reactions: Allergies No Known Allergies Allergy (Verified 11/21/18 10:44) Home Medications: Ambulatory Orders Ciprofloxacin HCl [Cipro] 500 mg PO Q12HR #10 tablet 11/21/18
== END 2018-11-21 11:30 | disposition home or self-care (01) ==
LOC: ED 10:37
DX: N39.0 Urinary tract infection, site not specified (principal); Z72.0 Tobacco use
CPT/HCPCS: 81001; 81025; 87086; 87186; 99283